=== PATIENT | male | born 1960 | race Caucasian/White ===

== ENCOUNTER → 2019-03-09 | Outpatient (CLI) | payer OTHER ==
[~2019-03-09] MED LIST: ACET-1600 PO; ASCO250T2 PO; CA C1TAB39 PO; CRAN500T PO; FISH1CAP PO; FLAX1CAP PO; GLIP10TA13 PO; GLIP5TAB10 PO; HYDR25TA6 PO; KRIL1CAP21 PO; LABE200T6 PO; LOSA100T14 PO; LOSA50TA14 PO; METF100010 PO; MULT1TAB60 PO; ROSU40TA PO; SAXA5TAB PO; TAMS0.4C2 PO; TURM500C4 PO; VITA1TAB19 PO; VITA400C43 PO; beet root PO
[2019-03-09 09:16] LABS: MICROSCOPIC AUTO
[2019-03-09 09:17] LABS: BASOPHILS # (AUTO) 0.05 x10^3/uL (0-0.1); BASOPHILS % (AUTO) 0 % (0-1); EOSINOPHILS % (AUTO) 3 % (1-7); LYMPHOCYTES # (AUTO) 1.84 x10^3/uL (1-3.4); LYMPHOCYTES % (AUTO) 15 % (22-44); MD NO; MEAN CORPUSCULAR HEMOGLOBIN 28.1 pg (27.5-34.5); MEAN CORPUSCULAR HGB CONC 33.2 g/dL (33.2-36.2); MEAN CORPUSCULAR VOLUME 84.8 fL (81-97); MEAN PLATELET VOLUME 7.7 fL (7.4-10.4); MONOCYTES # (AUTO) 1.01 x10^3/uL (0.2-0.8); MONOCYTES % (AUTO) 8 % (2-9); NEUTROPHILS # (AUTO) 8.88 x10^3/uL (1.8-6.8); NEUTROPHILS % (AUTO) 73 % (42-75); PLATELET COUNT 429 x10^3/uL (130-400); RED BLOOD COUNT 5.81 x10^6/uL (4.38-5.82); RED CELL DISTRIBUTION WIDTH 17.6 % (9.4-14.8)
[2019-03-09 09:18] LABS: CULTURE INDICATED? NO
[2019-03-09 09:24] LABS: INTERNATIONAL NORMALIZED RATIO 1.09 (0.93-1.1); PROTHROMBIN TIME 11.4 Seconds (9.6-11.5)
[2019-03-09 09:26] LABS: ALANINE AMINOTRANSFERASE 57 U/L (12-78); ALBUMIN 4.4 g/dL (3.4-5.0); ANION GAP 6 mmol/L (5-15); CALCIUM 9.5 mg/dL (8.5-10.1); CHLORIDE 99 mmol/L (98-107); CREATININE 0.89 mg/dL (0.7-1.3)
[2019-03-09 09:28] LABS: ALKALINE PHOSPHATASE 67 U/L (45-117); BILIRUBIN,TOTAL 1.5 mg/dL (0.2-1.0); TOTAL PROTEIN 8.6 g/dL (6.4-8.2)
== END | disposition home or self-care (01) ==
LOC: STAR 07:35
PROVIDERS: ATTEND Neurological Surgery
DX: Z01.812 Encounter for preprocedural laboratory examination (principal); Z01.811 Encounter for preprocedural respiratory examination; M48.061 Spinal stenosis, lumbar region without neurogenic claudication; M47.817 Spondylosis without myelopathy or radiculopathy, lumbosacral region; M53.87 Other specified dorsopathies, lumbosacral region; R79.1 Abnormal coagulation profile
CPT/HCPCS: 36415; 71046; 72110; 80053; 81001; 85025; 85610; 85730; 93005

== ENCOUNTER 2019-03-19 07:40 | Observation (INO) | payer OTHER ==
[~2019-03-19] VITALS: Ht 177.8 cm; Wt 103.6 kg
[~2019-03-19 07:40] MED LIST changes: +BACITRACIN 50,000 UNIT ONE; +BUPIVACAINE 0.25% ONE; +BUPIVACAINE/PF-EPI 0.5% 1:200K ONE; +MICROFIBRILLAR COLLAGEN 1 GM TP ONE; +THROMBIN 20,000 UNIT VIAL TP ONE; +THROMBIN 5,000 UNIT VIAL TP ONE
[2019-03-19] MEDS ORDERED: FENTANYL PF 250 MCG/5ML ONE (10:40)
[2019-03-19] MEDS ORDERED: MIDAZOLAM 1 MG/ML, 2ML ONE (10:40)
[2019-03-19] MEDS ORDERED: NEOSTIGMINE 1 MG/ML, 10ML ONE (10:44)
[2019-03-19] MEDS ORDERED: CEFAZOLIN 1,000 MG ONE (10:44)
[2019-03-19] MEDS ORDERED: ROCURONIUM 10MG/ML,5ML ONE (10:44)
[2019-03-19] MEDS ORDERED: PROPOFOL 10 MG/ML, 20ML ONE (10:44)
[2019-03-19] MEDS ORDERED: GLYCOPYRROLATE 0.2MG/1ML, 5ML ONE (10:44)
[2019-03-19] MEDS ORDERED: PROPOFOL 50 ML ONE ×2 (10:44→13:31)
[2019-03-19] MEDS ORDERED: LACTATED RINGERS 1,000 ML IV SCH (11:52)
[2019-03-19] MEDS ORDERED: GABAPENTIN 300 MG CAPSULE PO ONE (12:00)
[2019-03-19] MEDS ORDERED: ACETAMINOPHEN 500 MG TABLET PO ONE (12:00)
[2019-03-19] MEDS ORDERED: LIDOCAINE-MPF 1%, 2ML INFIL ONE (12:00)
[2019-03-19] MEDS ORDERED: PROMETHAZINE 25 MG/ML, 1ML IV PRN (13:00)
[2019-03-19] MEDS ORDERED: HYDROmorphone 2 MG/ML, 1ML IVPush PRN (13:00)
[2019-03-19] MEDS ORDERED: PROMETHAZINE 25 MG SUPP PR PRN (13:00)
[2019-03-19] MEDS ORDERED: LABETALOL 5MG/ML, 20ML IV PRN (13:00)
[2019-03-19] MEDS ORDERED: FENTANYL PF 100 MCG/2ML IV PRN (13:00)
[2019-03-19] MEDS ORDERED: ONDANSETRON ODT 8 MG PO PRN (13:00)
[2019-03-19] MEDS ORDERED: PROMETHAZINE 12.5 MG SUPP PR PRN (13:00)
[2019-03-19] MEDS ORDERED: MORPHINE SULFATE 4 MG/ML, 1ML IVPush PRN (13:00)
[2019-03-19] MEDS ORDERED: MEPERIDINE/PF 25MG/0.5ML IVPush PRN (13:00)
[2019-03-19] MEDS ORDERED: hydrALAzine 20 MG/ML, 1ML IV PRN (13:00)
[2019-03-19] MEDS ORDERED: ONDANSETRON 2MG/ML, 2ML IV PRN (13:00)
[2019-03-19] MEDS ORDERED: OXYcodone 5 MG/5 ML ORAL.SOL UDC PO PRN (13:00)
[2019-03-19] MEDS ORDERED: PROMETHAZINE 25 MG/ML, 1ML IM PRN ×3 (13:00→15:00)
[2019-03-19] MEDS ORDERED: SUGAMMADEX 200 MG/2 ML IVPush ONE (13:31)
[2019-03-19] MEDS ORDERED: FENTANYL PF 100 MCG/2ML ONE (13:37)
[2019-03-19] MEDS ORDERED: BUPIVACAINE LIPOSOME/PF 10ML INFIL ONE (13:46)
[2019-03-19] MEDS ORDERED: BUPIVACAINE/PF 0.25% EPIDPUSH ONE (13:59)
[2019-03-19] MEDS ORDERED: FENTANYL PF 100 MCG/2ML EPIDPUSH ONE (14:00)
[2019-03-19] MEDS ORDERED: PHENYLEPHRINE 10 MG/ML ONE (14:47)
[2019-03-19] MEDS ORDERED: VASOPRESSIN 20 UNIT/ML, 1ML ONE (14:47)
[2019-03-19] MEDS ORDERED: PHARMACY MAY ADJ FOR RENAL FX MC PRN (15:00)
[2019-03-19] MEDS ORDERED: NS + 20MEQ KCL 1,000 ML IV SCH (15:00)
[2019-03-19] MEDS ORDERED: HYDROcodone/APAP 5/325 TABLET PO PRN (15:00)
[2019-03-19] MEDS ORDERED: morphine SULFATE 10 MG/ML, 1ML IVPush PRN (15:00)
[2019-03-19] MEDS ORDERED: HYDROcodone/APAP 10/325 MG TABLET PO PRN (15:00)
[2019-03-19] MEDS ORDERED: OXYcodone/APAP 5/325MG TABLET PO PRN (15:00)
[2019-03-19] MEDS ORDERED: METHOCARBAMOL 750 MG TABLET PO PRN (15:00)
[2019-03-19] MEDS ORDERED: ONDANSETRON 2MG/ML, 2ML IVPush PRN (15:00)
[2019-03-19] MEDS ORDERED: CEFAZOLIN PMX 1GM/50ML 50 ML IVPB SCH (15:00)
[2019-03-19] MEDS ORDERED: DIPHENHYDRAMINE 50 MG/ML, 1ML IVPush PRN (15:00)
[2019-03-19 20:16] VITALS: BP 165/103
[2019-03-19] MEDS ORDERED: ATORVASTATIN 80 MG TABLET PO SCH (21:00)
[2019-03-19] MEDS ORDERED: LABETALOL 200 MG TABLET PO SCH (21:00)
[2019-03-19] MEDS ORDERED: SODIUM CHLORIDE FLUSH 10ML SYR IVF SCH (21:00)
[2019-03-19 21:01] VITALS: BP 146/92
[2019-03-20] MEDS ORDERED: metFORMIN 500 MG TABLET PO SCH (08:00)
[2019-03-20] MEDS ORDERED: LOSARTAN 50MG TABLET PO SCH (09:00)
[2019-03-20] MEDS ORDERED: LINAGLIPTIN 5 MG TAB PO SCH (09:00)
== END 2019-03-19 21:05 | disposition home or self-care (01) ==
LOC: INTOOBSV 11:32 → ORIP 11:32 → 4NOR 18:50
PROVIDERS: ADMIT Neurological Surgery; ATTEND Neurological Surgery
DX: M51.16 Intervertebral disc disorders with radiculopathy, lumbar region (principal); M21.372 Foot drop, left foot; Z79.899 Other long term (current) drug therapy
CPT/HCPCS: 63047; 72100; 82962; G0378; J0690; J2250; J2370; J2704; J2710; J3010; J3490; J7120